=== PATIENT | female | born 1950 | race American Indian/Alaskan Native ===

== ENCOUNTER 2017-10-21 02:28 | Emergency (ER) | payer MEDICARE ==
[2017-10-21] MEDS ORDERED: ASPIRIN PO ONE (02:58)
[2017-10-21 03:20] LABS: Basophils # (Auto) 0.1 K/mm3 (0.0-0.1); Basophils % (Auto) 1.3 % (0.0-1.8); Eosinophils % (Auto) 0.4 % (0.0-4.3); Hematocrit 39.6 % (30.3-42.9); Hemoglobin 13.7 gm/dl (10.1-14.3); Lymphocytes # (Auto) 3.3 K/mm3 (1.2-5.4); Lymphocytes % (Auto) 48.1 % (13.4-35.0); Mean Corpuscular HGB Conc 35 % (30-34); Mean Corpuscular Hemoglobin 32 pg (28-32); Mean Corpuscular Volume 94 fl (79-97); Monocytes # (Auto) 0.7 K/mm3 (0.0-0.8); Monocytes % (Auto) 9.7 % (0.0-7.3); Platelet Count 385 K/mm3 (140-440); Red Blood Count 4.23 M/mm3 (3.65-5.03); Red Cell Distribution Width 13.6 % (13.2-15.2)
[2017-10-21 03:40] LABS: BUN/Creatinine Ratio 16; Blood Urea Nitrogen 13 mg/dL (7-17); Calcium 9.4 mg/dL (8.4-10.2); Hemolysis Index 7
[2017-10-21 06:46] VITALS: BP 121/70
--- NOTE | 2017-10-21 06:49 | Emergency Department Report ---
ED Palpitations HPI - General Chief Complaint: Arrhythmia/Palpitations Stated Complaint: RAPID HEART RATE Time Seen by Provider: 10/21/17 06:40 Source: patient, EMS Mode of arrival: Stretcher Limitations: No Limitations - History of Present Illness Initial Comments: Woke up with palpitations, run strip from [facility] shows PACs PVCs occasional history of hypertension occasional dizziness with standing no black or bloody stool no syncope no chest pain. Does drink lots of caffeine and denies alcohol. For evaluation of occasional intermittent palpitations with PAC PVC occasional on the run strip no headache no stiff neck. Recently started a stomach pill that she doesn't know the name of. She was told she has acid reflux. No chest pain no focal neural complaints of shortness of breath or swelling MD Complaint: "skipped beats" -: Gradual Associated Symptoms: denies other symptoms. denies: chest pain, shortness of breath, syncope, near-syncope, nausea/vomiting, anxiety, diaphoresis, cough, parasthesias, feeling of impending doom, muscle cramps - Related Data Home Medications Medication Instructions Recorded Confirmed Last Taken Lisinopril/Hydrochlorothiazide 1 tab PO QDAY 08/21/15 08/21/15 Unknown [Zestoretic 10-12.5 mg] Allergies Allergy/AdvReac Type Severity Reaction Status Date / Time Penicillins Allergy Unknown Verified 08/20/15 19:19 ED Review of Systems ROS: Stated complaint: RAPID HEART RATE Other details as noted in HPI Comment: All other systems reviewed and negative Constitutional: denies: diaphoresis, fever, malaise Eyes: denies: eye discharge, vision change ENT: denies: dental pain, hearing loss, epistaxis Respiratory: denies: cough, orthopnea, shortness of breath, SOB with exertion, SOB at rest, stridor Cardiovascular: palpitations. denies: chest pain, dyspnea on exertion, orthopnea, edema, syncope, paroxysmal nocturnal dyspnea Endocrine: no symptoms reported Gastrointestinal: denies: abdominal pain, nausea, vomiting, diarrhea, constipation, hematemesis, melena, hematochezia Genitourinary: denies: urgency, dysuria, frequency, hematuria, discharge, abnormal menses, dyspareunia Skin: denies: rash, lesions Neurological: denies: headache, weakness, numbness, paresthesias, confusion, abnormal gait, vertigo, other Psychiatric: denies: auditory hallucinations, visual hallucinations, homicidal thoughts Hematological/Lymphatic: denies: easy bruising ED Past Medical Hx - Past Medical History Previous Medical History?: Yes Hx Hypertension: Yes Additional medical history: SBO, Acid Reflux - Surgical History Past Surgical History?: Yes Additional Surgical History: SBO 2002. C-Sxn x 2 - Social History Smoking Status: Former Smoker Substance Use Type: Alcohol, Prescribed - Medications Home Medications: Home Medications Medication Instructions Recorded Confirmed Last Taken Type Lisinopril/Hydrochlorothiazide 1 tab PO QDAY 08/21/15 08/21/15 Unknown History [Zestoretic 10-12.5 mg] ED Physical Exam - General Limitations: No Limitations General appearance: alert, in no apparent distress, anxious - Head Head exam: Present: atraumatic, normocephalic - Eye Eye exam: Present: normal appearance, PERRL, EOMI - ENT ENT exam: Present: normal exam, normal orophraynx - Neck Neck exam: Present: normal inspection. Absent: tenderness, meningismus - Respiratory Respiratory exam: Present: normal lung sounds bilaterally. Absent: respiratory distress, wheezes, rales, rhonchi, stridor, chest wall tenderness, accessory muscle use, decreased breath sounds, prolonged expiratory - Cardiovascular Cardiovascular Exam: Present: regular rate, normal rhythm, normal heart sounds. Absent: bradycardia, tachycardia, systolic murmur, diastolic murmur, rubs, gallop - GI/Abdominal GI/Abdominal exam: Present: soft. Absent: distended, tenderness, guarding, rebound, rigid, mass, pulsatile mass - Extremities Exam Extremities exam: Present: normal inspection, normal capillary refill. Absent: pedal edema, joint swelling - Back Exam Back exam: Present: normal inspection. Absent: CVA tenderness (R), CVA tenderness (L), muscle spasm, paraspinal tenderness, vertebral tenderness - Neurological Exam Neurological exam: Present: alert, oriented X3, CN II-XII intact. Absent: motor sensory deficit - Skin Skin exam: Present: warm. Absent: cyanosis, diaphoretic, erythema, urticaria, vesicles ED Course Vital Signs 10/21/17 10/21/17 10/21/17 02:33 03:01 03:27 Temperature 98.2 F 98 F Pulse Rate 91 H 87 87 Respiratory 16 15 12 Rate Blood Pressure 157/88 149/85 Blood Pressure 143/85 [Left] O2 Sat by Pulse 100 99 100 Oximetry 10/21/17 10/21/17 10/21/17 04:00 05:00 06:00 Temperature Pulse Rate 76 63 64 Respiratory 15 16 14 Rate Blood Pressure 131/78 113/70 121/70 Blood Pressure [Left] O2 Sat by Pulse 96 Oximetry ED Medical Decision Making - Lab Data Result diagrams: 10/21/17 03:07 10/21/17 03:07 - EKG Data Rate: normal - EKG Data Interpretation: normal EKG, other (no acute ischemic change occasional PAC PVC) - Medical Decision Making Labs unremarkable. Patient denies chest pain. EKG shows no acute ST changes. Troponins negative 3. Chest x-ray does show chronic change. Patient is not having night sweats no weight loss no fever no cough no shortness of breath. She does have history of treated TB according the patient. She does not have any symptoms would suggest reactivation TB at this time. She is notany chest pain. No shortness of breath OR SWELLING. NO EVIDENCE OF DVT PE. NO EVIDENCE OF ACS AT THIS TIME. PATIENT IS THEREFORE STABLE FOR OUTPATIENT FOLLOW-UP WITH OCCASIONAL PAC PVC SHE WILL NEED OUTPATIENT FOLLOW UP WITH CARDIOLOGY FOR FURTHER EVALUATION SHE IS REFUSING ADMISSION AND I DID DISCUSS WITH HER THE CONSIDERATION OF ADMISSION FOR MONITORING AND FURTHER EVALUATION SHE IS REFUSING THAT AT THIS TIME SHE IS AWARE OF THE RISK OF LEAVING INCLUDING AND DISABILITY SHE VERBALIZED UNDERSTANDING WE WILL REFER HER OUTPATIENT CARDIOLOGY Critical care attestation.: If time is entered above; I have spent that time in minutes in the direct care of this critically ill patient, excluding procedure time. ED Disposition Clinical Impression: Palpitations Disposition: -01 TO HOME OR SELFCARE Is pt being admited?: No Condition: Stable Instructions: Palpitations (ED) Additional Instructions: See the doctor listed recurrent nor alarming symptoms or call 911 avoid any medicines that make it worse Referrals: AGNIESZKA ALLEN MD [Primary Care Provider] - 3-5 Days BECKY GONZALEZ MD [Staff Physician] - 3-5 Days Time of Disposition: 13:23
--- NOTE | 2017-10-21 07:35 | XRay Report ---
FINAL REPORT EXAM: XR CHEST ROUTINE 2V HISTORY: Palpitations. TECHNIQUE: Frontal and lateral radiographs of the chest were obtained. No prior studies are available for comparison. FINDINGS: The cardiac silhouette and mediastinum are within normal limits. There are emphysematous changes in the mid-upper lung alex, right greater than left. There is moderate focal patchy opacity in the left suprahilar region, extending superiorly within the left upper lobe, which may represent scarring or inflammatory changes. There is pleural thickening at the left lung apex and additional somewhat nodular scarring in the left upper lobe. There are several calcified granuloma in both lungs. There is no pneumothorax. Moderate spondylotic changes are seen in the spine. IMPRESSION: 1. Emphysematous changes in the mid-upper lung alex. 2. Moderate patchy opacities in the left suprahilar region and left upper lobe. Additional left apical pleural thickening and adjacent nodular scarring. Query prior history of granulomatous disease/TB, of indeterminate age. Direct comparison with prior examinations is recommended to determine stability.
[2017-10-21] MEDS ORDERED: ECOTRIN PO ONE (08:06)
== END 2017-10-21 14:40 | disposition home or self-care (01) ==
LOC: ED 02:28
DX: R00.2 Palpitations (principal); I10 Essential (primary) hypertension
CPT/HCPCS: 36415; 71046; 80048; 84484; 85025; 93005; 93010

== ENCOUNTER 2017-12-06 09:13 | Outpatient (CLI) | payer MEDICARE ==
[2017-12-06 09:58] LABS: BUN/Creatinine Ratio 19; Blood Urea Nitrogen 13 mg/dL (7-17); Calcium 9.5 mg/dL (8.4-10.2); Hemolysis Index 18
--- NOTE | 2017-12-08 07:28 | Cat Scan Report ---
CT CHEST WITH CONTRAST: HISTORY: Lung nodule. COMPARISON: AP chest dated 10/21/17. TECHNIQUE: Helical CT in 1.25mm intervals following IV contrast. Sagittal and coronal reformatted images. FINDINGS: Thyroid gland: Normal. Tracheobronchial tree: There is mild cystic bronchiectasis in the superior lingula. The remainder of the tracheobronchial tree is within normal limits. Esophagus: Normal. Heart: Normal. Pericardium: Normal. Mediastinum: Normal. Lung Yo: There are multiple bilateral calcified granulomas measuring less than 1 cm. No suspicious soft tissue density nodule is identified. There is moderate subpleural scarring at the left apex which is probably related to chronic granulomas disease. No evidence for pneumonia or advanced interstitial lung disease. Pleural Spaces: Normal. Musculoskeletal: Mild thoracic spondylosis. IMPRESSION: Chronic granulomatous disease. No suspicious pulmonary nodule identified. Subpleural scarring at the left apex.
== END 2017-12-06 09:14 | disposition home or self-care (01) ==
LOC: CT 09:13
PROVIDERS: ATTEND Internal Medicine
DX: J84.10 Pulmonary fibrosis, unspecified (principal); R91.1 Solitary pulmonary nodule; M47.894 Other spondylosis, thoracic region; J98.4 Other disorders of lung; I10 Essential (primary) hypertension; Z87.891 Personal history of nicotine dependence; Z98.51 Tubal ligation status; Z82.49 Family history of ischemic heart disease and other diseases of the circulatory system
CPT/HCPCS: 36415; 71260; 80048; 82164; 84436; 84443; Q9967